=== PATIENT | male | born 1945 | race Asian ===

== ENCOUNTER 2020-11-19 07:04 | Observation (INO) | payer OTHER, MEDICAID ==
[~2020-11-19] VITALS: Ht 177.8 cm; Wt 90.0 kg
[2020-11-19] MEDS ORDERED: iohexol 350 MG/ML 50ML vial IV ONE (07:32)
[2020-11-19] MEDS ORDERED: iohexol 350MG/ML 100ml bottle IV ONE (07:32)
[2020-11-19] MEDS ORDERED: morphine 4 MG/ML inj SYRINge IV ONE ×2 (09:00→12:15)
[2020-11-19 09:27] LABS: BASOPHILS % (AUTO) 0.3 % (0-1); EOSINOPHILS % (AUTO) 0.3 % (0-6); HEMATOCRIT 34.9 % (42.0-52.0); HEMOGLOBIN 12.1 g/dl (14.0-17.9); LYMPHOCYTES # (AUTO) 1.2 X10'3 (1.1-4.8); LYMPHOCYTES % (AUTO) 11.8 % (21-51); MEAN CORPUSCULAR HEMOGLOBIN 32.5 PG (27.0-31.0); MEAN CORPUSCULAR HGB CONC 34.6 g/dL (33.0-36.5); MEAN CORPUSCULAR VOLUME 93.9 FL (78-98); MEAN PLATELET VOLUME 8.6 FL (7.4-10.4); MONOCYTES # (AUTO) 0.9 X10'3 (0-0.9); MONOCYTES % (AUTO) 8.1 % (2-12); NEUTROPHILS # (AUTO) 8.4 X10'3 (1.8-7.7); NEUTROPHILS % (AUTO) 79.5 % (42-75); PLATELET COUNT 153 X10'3 (140-440); RED BLOOD COUNT 3.71 X10'6 (4.70-6.10); RED CELL DISTRIBUTION WIDTH 13.1 % (11.5-14.5); WHITE BLOOD COUNT 10.6 X10'3 (4.5-11.0)
[2020-11-19 09:44] LABS: ALBUMIN 3.3 G/DL (3.4-5.0); ANION GAP 8 (8-16); BLOOD UREA NITROGEN 22 MG/DL (7-18); BUN/CREATININE RATIO 13.5 (5.4-32.0); CALCIUM 8.2 MG/DL (8.5-10.1); CHLORIDE 102 MMOL/L (99-107); CREATININE 1.63 MG/DL (0.60-1.10); GLUCOSE 217 MG/DL (70-104); POTASSIUM 4.4 MMOL/L (3.5-5.1); SODIUM 135 MMOL/L (135-145); TOTAL CARBON DIOXIDE 24.7 MMOL/L (24-32); eGFR 41 ML/MIN
[2020-11-19] MEDS ORDERED: PANT40TA54 PO (11:24)
[2020-11-19] MEDS ORDERED: LOSA100T57 PO (11:24)
[2020-11-19] MEDS ORDERED: ALBU8.5H17 IH (11:24)
[2020-11-19] MEDS ORDERED: PILO5TAB10 PO (11:24)
[2020-11-19] MEDS ORDERED: SIMV-42 PO (11:24)
[2020-11-19] MEDS ORDERED: FERR-106 PO (11:24)
[2020-11-19] MEDS ORDERED: GLIP10TA21 PO (11:24)
[2020-11-19] MEDS ORDERED: FLUT1BLS4 (11:24)
[2020-11-19] MEDS ORDERED: FLO0.4C PO (11:24)
[2020-11-19] MEDS ORDERED: CLOP75TA34 PO (11:24)
[2020-11-19 13:42] LABS: CLARITY,URINE CLEAR (Clear); COLOR,URINE YELLOW (Yellow); GLUCOSE, URINE NEGATIVE (Neg); KETONES,URINE NEGATIVE (Neg); LEUKOCYTE ESTERASE ,URINE NEGATIVE (Neg); NITRITES, URINE NEGATIVE (Neg); OCCULT BLOOD,URINE NEGATIVE (Neg); PROTEIN,URINE TRACE mg/dl (Neg); UROBILINOGEN,URINE 0.2 E.U/dL (0.2-1.0)
[2020-11-19 13:45] LABS: BACTERIA,URINE NONE SEEN /HPF (Neg); MUCUS STRANDS FEW /LPF (Neg); RBC,URINE NONE SEEN /HPF (0-2); SQUAMOUS EPITHELIAL CELL,UR NONE SEEN /LPF (FEW); UA COLLECTION TYPE CLN CATCH MIDSTREAM; WBC,URINE 0-4 /HPF (0-4)
[2020-11-19] MEDS ORDERED: magnesium hydroxide 30ml (MOM) UD suspension PO PRN (13:55)
[2020-11-19] MEDS ORDERED: ondansetron/PF 4mg/2ml inj IV PRN (13:55)
[2020-11-19] MEDS ORDERED: morphine 2 MG/ML inj. syringe IV PRN (13:55)
[2020-11-19] MEDS ORDERED: acetaminophen 325mg tablet PO PRN ×2 (13:55)
[2020-11-19] MEDS ORDERED: mag hydrox/Alum hydrox/simeth 30ml oral suspension PO PRN (13:55)
[2020-11-19] MEDS ORDERED: MESSAGE TO PHARMACY PO ONE (14:00)
[2020-11-19] MEDS ORDERED: glucagon, human recombinant 1mg kit SUBCUT PRN (14:00)
[2020-11-19] MEDS ORDERED: dextrose ORAL solution 15 GM/59 ML bottle PO PRN ×2 (14:00)
[2020-11-19] MEDS ORDERED: dextrose 50%-water 50ml dispensing syringe IV PRN ×2 (14:00)
[2020-11-19 14:19] LABS: HEMOGLOBIN A1C 8.7 % (4.5-6.2)
[2020-11-19] MEDS ORDERED: ipratropium/albuterol 3ml nebule IH SCH (15:00)
[2020-11-19] MEDS ORDERED: baclofen 10mg tablet PO PRN (15:45)
[2020-11-19] MEDS: baclofen 10mg tablet PO PRN ×2 (15:55→22:37)
[2020-11-19] MEDS: morphine 2 MG/ML inj. syringe IV PRN (15:55)
--- NOTE | 2020-11-19 16:44 | NUR ---
Page Sent PAGER ID: [phone] MESSAGE: Roxana [phone]. RE: Cliff Castro room 8. Pt needs order for fluid culture per Dr. Marks.
[2020-11-19] MEDS ORDERED: albuterol 2.5 MG/3 ML nebule NEB PRN (16:55)
[2020-11-19] MEDS ORDERED: albuterol 2.5 MG/3 ML nebule NEB SCH (17:00)
[2020-11-19 17:40] LABS: GLUCOSE,SYNOVIAL FLUID 66 MG/DL; TOTAL PROTEIN,SYNOVIAL FLUID 4.2 GM/DL
[2020-11-19 17:41] LABS: APPEARANCE,SYNOVIAL FLUID CLOUDY; COLOR,SYNOVIAL FLUID YELLOW; SYN WBC 18000 /CU MM (0-200)
[2020-11-19 17:42] LABS: CRYSTAL ID, SYN FLD CA PYROPHOSPHATE; LYMPHOCYTES,SYNOVIAL FLUID 3 % (0-75); MONOCYTES,SYNOVIAL FLUID 11 % (0-0); NEUTROPHILS,SYNOVIAL FLUID 86 % (0-25); SYN RBC 388 /CU MM (0); SYNOVIAL FLUID CRYSTALS QT MODERATE
--- NOTE | 2020-11-19 18:17 | NUR ---
Page Sent PAGER ID: [phone] MESSAGE: Roxana [phone]. Re: rahul DANGELO room 8. Requesting dinner but NPO.
[2020-11-19] MEDS: HYDROcodone/acetaminophen 5mg/325mg tablet PO PRN (18:33)
[2020-11-19] MEDS: ipratropium/albuterol 3ml nebule IH SCH ×2 (19:00→20:31)
--- NOTE | 2020-11-19 19:50 | NUR ---
Page Sent PAGER ID: [phone] MESSAGE: Roxana [phone]. Re: Cliff Castro room 8. Requesting to eat for hours but NPO. Diet? Reason for NPO?
[2020-11-19] MEDS: tamsulosin 0.4mg capsule PO SCH (20:00)
[2020-11-19] MEDS: PILOCARPINE HCL 5 MG PO SCH (20:00)
[2020-11-19] MEDS: budesonide 0.5mg/2ml UD nebule IH SCH (20:31)
[2020-11-19] MEDS ORDERED: atorvastatin 10mg tablet PO SCH (21:00)
[2020-11-19] MEDS ORDERED: insulin glargine (Lantus) pen - multi-dose SQ SCH (21:00)
--- NOTE | 2020-11-19 22:41 | NUR ---
Sheryl, daughter: [phone]
[2020-11-20] MEDS: ipratropium/albuterol 3ml nebule IH SCH ×2 (02:33→07:57)
[2020-11-20] MEDS: morphine 2 MG/ML inj. syringe IV PRN (03:11)
[2020-11-20 03:56] LABS: BASOPHILS % (AUTO) 0.4 % (0-1); EOSINOPHILS % (AUTO) 0.5 % (0-6); HEMATOCRIT 35.4 % (42.0-52.0); LYMPHOCYTES # (AUTO) 1.5 X10'3 (1.1-4.8); LYMPHOCYTES % (AUTO) 16.4 % (21-51); MEAN CORPUSCULAR HEMOGLOBIN 32.5 PG (27.0-31.0); MEAN CORPUSCULAR HGB CONC 33.8 g/dL (33.0-36.5); MEAN CORPUSCULAR VOLUME 95.9 FL (78-98); MEAN PLATELET VOLUME 8.7 FL (7.4-10.4); NEUTROPHILS # (AUTO) 6.5 X10'3 (1.8-7.7); NEUTROPHILS % (AUTO) 71.7 % (42-75); PLATELET COUNT 158 X10'3 (140-440); RED BLOOD COUNT 3.68 X10'6 (4.70-6.10); RED CELL DISTRIBUTION WIDTH 13.1 % (11.5-14.5); WHITE BLOOD COUNT 9.1 X10'3 (4.5-11.0)
[2020-11-20 04:27] LABS: ALBUMIN 2.9 G/DL (3.4-5.0); ANION GAP 10 (8-16); BLOOD UREA NITROGEN 25 MG/DL (7-18); BUN/CREATININE RATIO 15.6 (5.4-32.0); CALCIUM 8.3 MG/DL (8.5-10.1); CHLORIDE 102 MMOL/L (99-107); GLUCOSE 180 MG/DL (70-104); SODIUM 137 MMOL/L (135-145); TOTAL CARBON DIOXIDE 24.6 MMOL/L (24-32); eGFR 42 ML/MIN
--- NOTE | 2020-11-20 07:23 | NUR ---
RECEIVED REPORT FROM MARNIE GREEN
[2020-11-20] MEDS: HYDROcodone/acetaminophen 5mg/325mg tablet PO PRN ×2 (07:48→11:54)
[2020-11-20] MEDS: tamsulosin 0.4mg capsule PO SCH (07:49)
[2020-11-20] MEDS: PILOCARPINE HCL 5 MG PO SCH (07:52)
[2020-11-20] MEDS: budesonide 0.5mg/2ml UD nebule IH SCH (07:57)
[2020-11-20] MEDS ORDERED: pantoprazole 40mg Tablet.DR PO SCH (08:00)
[2020-11-20] MEDS ORDERED: ferrous sulfate 325mg tablet PO SCH (08:00)
[2020-11-20] MEDS ORDERED: losartan 50mg tablet PO SCH (08:00)
[2020-11-20 08:20] VITALS: BP 125/59
[2020-11-20] MEDS: insulin Lispro (HumaLOG) vial - multi-dose SQ SCH ×2 (09:05→13:08)
[2020-11-20 11:06] VITALS: BP 110/66
--- NOTE | 2020-11-20 11:48 | NUR ---
I spoke to Dr. Aguirre about patient daughter Sharon Castro writing a work excuse until Friday to take care of her dad, the patient. Dr. Aguirre said that was fine.
[2020-11-20] MEDS ORDERED: HYDR-3965 PO (13:34)
--- NOTE | 2020-11-20 13:47 | NUR ---
pt d/c with instructions, understanding of instructions and w/all belongings in wheelchair accompanied by daughters and nursing staff to private vehicle to [facility] walk[facility] [place] [employer] [address] and to go home and f/u w/pcp
== END 2020-11-20 13:30 | disposition home or self-care (01) ==
LOC: ER 07:05 → ED HOLD 13:54 → EDBEDREQ 11-20 04:31 → ORTHO 4S 11-20 07:39
PROVIDERS: ADMIT Internal Medicine; ATTEND Internal Medicine
DX: M11.252 Other chondrocalcinosis, left hip (principal); N40.0 Benign prostatic hyperplasia without lower urinary tract symptoms; E78.5 Hyperlipidemia, unspecified; J44.9 Chronic obstructive pulmonary disease, unspecified; E11.51 Type 2 diabetes mellitus with diabetic peripheral angiopathy without gangrene; E11.22 Type 2 diabetes mellitus with diabetic chronic kidney disease; I12.9 Hypertensive chronic kidney disease with stage 1 through stage 4 chronic kidney disease, or unspecified chronic kidney disease; N18.30 Chronic kidney disease, stage 3 unspecified; Z79.899 Other long term (current) drug therapy; Z79.02 Long term (current) use of antithrombotics/antiplatelets; Z79.4 Long term (current) use of insulin; Z87.891 Personal history of nicotine dependence; Z86.79 Personal history of other diseases of the circulatory system
CPT/HCPCS: 36415; 75635; 80048; 81001; 82945; 82948; 83036; 84157; 85025; 85651; 86140; 87070; 87081; 89051; 89060; 94640; 94760; 96374; 96376; 97161; 97530; 99285; G0378; J2270; Q9967; J1815; J7626